=== PATIENT | female | born 1970 | race Asian ===

== ENCOUNTER 2023-12-25 14:13 | Outpatient (CLI) | payer OTHER ==
[2023-12-25 14:42] LABS: BASOPHILS # (AUTO) 0.1 10^3/uL (0.0-0.1); BASOPHILS % (AUTO) 0.8 %; EOSINOPHILS # (AUTO) 0.1 10^3/uL (0.0-0.7); HCT - HEMATOCRIT 36.6 % (37.0-47.0); HGB - HEMOGLOBIN 11.7 g/dL (12.0-16.0); LYMPHOCYTES # (AUTO) 2.1 10^3/uL (1.5-3.5); LYMPHOCYTES % (AUTO) 34.7 %; MEAN CORPUSCULAR VOLUME 90.8 fL (81.0-99.0); MEAN PLATELET VOLUME 8.7 fL (7.9-10.8); MONOCYTES # (AUTO) 0.4 10^3/uL (0.0-1.0); MONOCYTES % (AUTO) 6.4 %; NEUTROPHILS # (AUTO) 3.4 10^3/uL (1.5-6.6); NEUTROPHILS % (AUTO) 55.9 %; PLT - PLATELET COUNT 318 10^3/uL (130-450); RED BLOOD COUNT 4.03 10^6/uL (4.20-5.40); RED CELL DISTRIBUTION WIDTH 13.6 % (12.0-15.0); WHITE BLOOD COUNT 6.1 x10^3/uL (4.8-10.8)
[2023-12-25 14:55] LABS: CREATININE 0.5 mg/dL (0.6-1.3); POTASSIUM 4.2 mmol/L (3.5-4.5)
--- NOTE | 2023-12-27 10:41 | XRAY Report ---
PROCEDURE: Cervical Spine 2-3V INDICATIONS: PARASTHESIA OF UPPER LIMB TECHNIQUE: 3 view(s) of the cervical spine were acquired. COMPARISON: None. FINDINGS: Bones: No fractures or dislocations to the C7 level. The lateral masses of C1 appear intact on the odontoid view. No suspicious bony lesions. There is mild reversal of the normal cervical lordosis. T race retrolisthesis of C4 and C5. Multilevel degenerative changes, worse and moderate at C4-C5. Soft tissues: No prevertebral soft tissue swelling. IMPRESSION: No acute displaced fracture or traumatic subluxation. Trace C4-C5 retrolisthesis. Multilevel degenerative changes, worse at C4-C5. Reviewed by: Yolande Mark MD, PhD on 12/27/2023 10:40 AM PDT Approved by: Yolande Mark MD, PhD on 12/27/2023 10:40 AM PDT Station ID: [id number]
[2023-12-29 18:08] LABS: ANTINUCLEAR ANTIBODIES IFA Negative (.)
== END 2023-12-25 14:14 | disposition home or self-care (01) ==
LOC: DI 14:13
PROVIDERS: ATTEND Physician Assistant Medical
DX: M47.812 Spondylosis without myelopathy or radiculopathy, cervical region (principal); M25.50 Pain in unspecified joint
CPT/HCPCS: 36415; 80048; 82607; 85025; 86038; 86140

== ENCOUNTER 2024-01-07 10:41 | Outpatient (CLI) | payer OTHER ==
--- NOTE | 2024-01-07 18:39 | XRAY Report ---
PROCEDURE: Knee 3V RT INDICATIONS: KNEE PAIN, CHRONIC TECHNIQUE: 3 views of the knee(s) were acquired. COMPARISON: None. FINDINGS: Bones: No fractures or dislocations. No suspicious bony lesions. Minimal early degenerative de [place] es most severe medially. Soft tissues: No knee joint effusion. No suspicious soft tissue calcifications or masses. IMPRESSION: Minimal early arthritic change medially. Reviewed by: Karen Franklin MD on 01/07/2024 6:37 PM PDT Approved by: Karen Franklin MD on 01/07/2024 6:37 PM PDT Station ID: [id number]
== END 2024-01-07 10:42 | disposition home or self-care (01) ==
LOC: DI.N 10:41
DX: M17.11 Unilateral primary osteoarthritis, right knee (principal); M25.549 Pain in joints of unspecified hand; R63.5 Abnormal weight gain
CPT/HCPCS: 36415; 80053; 80061; 83036; 83721; 84443; 86430

== ENCOUNTER 2024-01-07 11:51 | Outpatient (CLI) | payer OTHER ==
[2024-01-07 18:54] LABS: RHEUMATOID FACTOR POSITIVE (Negative)
[2024-01-07 19:00] LABS: THYROID STIMULATING HORMONE 2.52 uIU/mL (0.34-5.60)
[2024-01-07 19:04] LABS: ALBUMIN 4.4 g/dL (3.2-5.5); ALBUMIN/GLOBULIN RATIO 1.5 (1.0-2.2); ALKALINE PHOSPHATASE 26 IU/L (42-121); ALT ALANINE AMINOTRANSFERASE 23 IU/L (10-60); AST ASPARTATE AMINOTRANSFERASE 17 IU/L (10-42); BILIRUBIN,TOTAL 0.4 mg/dL (0.2-1.0); BUN - BLOOD UREA NITROGEN 10 mg/dL (6-20); CALCIUM 9.5 mg/dL (8.5-10.3); CARBON DIOXIDE - CO2 28 mmol/L (21-32); CHLORIDE 105 mmol/L (101-111); CHOL/HDL RATIO 3.6 (<4.4); CHOLESTEROL 225 mg/dL; CREATININE 0.4 mg/dL (0.6-1.3); GFR - MDRD 166 (>89); GLUCOSE 99 mg/dL (74-104); HDL CHOLESTEROL 63 mg/dL; LDL CHOLESTEROL,CALCULATED 104 mg/dL; LDL/HDL RATIO 1.7 (<4.4); POTASSIUM 4.5 mmol/L (3.5-4.5); SODIUM 140 mmol/L (135-145); TOTAL PROTEIN 7.3 g/dL (6.4-8.9); TRIGLYCERIDES 290 mg/dL; VLDL CHOLESTEROL 58 mg/dL
[2024-01-07 21:18] LABS: ESTIMATED AVERAGE GLUCOSE 114 mg/dL (70-100); HEMOGLOBIN A1c% 5.6 % (4.27-6.07)
== END 2024-01-07 11:52 | disposition home or self-care (01) ==
LOC: LAB.N 11:51
DX: M25.549 Pain in joints of unspecified hand (principal); R63.5 Abnormal weight gain
CPT/HCPCS: 36415; 80053; 80061; 83036; 83721; 84443; 86430